=== PATIENT | male | born 1960 | race African-American/Black ===

== ENCOUNTER 2019-11-16 15:08 | Inpatient (IN) ==
[2019-11-16 15:48] LABS: URINE SOURCE CLEAN CATCH
[2019-11-16 15:52] LABS: BASO# 0.03 X1000 (0.0-0.2); BASO% 0.3 % (0.0-0.8); EOS# 0.23 X1000 (0.0-0.7); EOS% 2.6 % (0.0-10.0); HEMATOCRIT 45.8 % (42.0-52.0); HEMOGLOBIN 15.2 g/dL (14.0-18.0); IMM GRAN# 0.02 X1000 (0.0-0.04); IMM GRAN% 0.2 % (0.0-0.5); LYMPH# 2.82 X1000 (1.2-3.4); LYMPH% 32.5 % (20.5-51.1); MCHC 33.2 g/dL (33-37); MCV 93.5 FL (81-99); MONO# 1.42 X1000 (0.11-0.59); MONO% 16.4 % (1.7-9.3); MPV 9.4 FL (7.4-10.4); NEUT# 4.16 X1000 (1.4-6.5); PLT 219 X1000 (130-400); RDW 15.5 % (11.5-14.5); WBC 8.68 X1000 (4.8-10.8)
[2019-11-16 16:08] LABS: BILIRUBIN URINE NEGATIVE (NEGATIVE); BLOOD URINE NEGATIVE (NEGATIVE); COLOR YELLOW; GLUCOSE URINE NEGATIVE (NEGATIVE); KETONE URINE NEGATIVE (NEGATIVE); LEUKOCYTES URINE NEGATIVE (NEGATIVE); NITRITE URINE NEGATIVE (NEGATIVE); PH URINE 6.5; PROTEIN URINE NEGATIVE (NEGATIVE); SP GRAVITY URINE 1.011; TURBIDITY URINE CLEAR (CLEAR); UROBILINOGEN URINE NORMAL (NORMAL)
[2019-11-16 16:09] LABS: UR EPITHELIAL CELLS <10 /HPF (<10); URINE BACTERIA NEGATIVE /HPF; URINE RBC <10 /HPF (<10); URINE WBC <10 /HPF (<10)
[2019-11-16 16:10] LABS: UR AMPHETAMINES QUAL NONE DETECTED (NONE DETECT); UR BARBITUATES QUAL NONE DETECTED (NONE DETECT); UR BENZODIAZEPIN QUAL NONE DETECTED (NONE DETECT); UR CANNABINOIDS QUAL NONE DETECTED (NONE DETECT); UR COCAINE QUAL PRESUMPTIVE POSITIVE (NONE DETECT); UR METHADONE QUAL NONE DETECTED (NONE DETECT); UR METHAMPHETAMINE QUAL NONE DETECTED (NONE DETECT); UR OPIATES QUAL NONE DETECTED (NONE DETECT); UR OXYCODONE QUAL NONE DETECTED (NONE DETECT); UR PCP QUAL NONE DETECTED (NONE DETECT); UR PROPOXYPHENE QUAL NONE DETECTED (NONE DETECT); UR TCA QUAL NONE DETECTED (NONE DETECT)
--- NOTE | 2019-11-16 16:20 | PROVIDER DOCUMENTATION ---
HPI-Abdominal Pain/GI Problem - General Chief Complaint: Abdominal Pain Stated Complaint: ABD PAIN/NAUSEA Time Seen by Provider: 11/16/19 15:58 Source: patient Allergies/Adverse Reactions: Patient Allergies Allergy/AdvReac Type Severity Reaction Status Date / Time No Known Allergies Allergy Verified 11/16/19 15:41 Home Medications: Home Medication List Medication Instructions Recorded Confirmed Last Taken Type Quetiapine [Seroquel] 50 mg PO HS 11/16/19 11/16/19 Unknown History - History of Present Illness-ABD Nature of Presenting Problems: Patient is a 58yo M who presents with complaints of generalized abdominal pain, worse in upper quadrants, and nausea/dry heaving x2 days. Reports some relief in pain improvement with OTC Motrin. States last BM was this morning and was smaller than usual. Reports past hx of Pancreatitis. Admits to weekly alcohol usage, last 2 days ago, which was 1/2 pint of liquor. Denies fever, blood in stool/dark stools, symptoms, CP, or SOB. Non-toxic in appearance. Abdominal Pain Onset Location: reports: generalized abdomen (worse in bilateral upper quadrants) Pain Radiation: reports: no radiation Quality of Pain: reports: aching, cramping Severity in ED: reports: moderate Onset/Duration: reports: 2 days ago Timing: reports: still present Activities at Onset: reports: none Exposure to sick contacts?: No Modifying Factors: improves with: analgesics Associated Symptoms: reports: nausea, vomiting (dry heaving). denies: chest pain, diarrhea, fever/chills, genitourinary problems, headaches, shortness of breath Last BM: this morning Dark Stools Present?: reports: none noticed Rectal Bleeding: reports: none # of Diarrhea Episodes: 0 Rectal Pain: reports: none Emesis Description: reports: none (dry heaving) Bruising or Bleeding Gums?: No Similar Symptoms Previously?: Yes Recently seen or treated by another doctor?: Yes (saw PCP 10/25/19) Review of Systems - Adult - REVIEW OF SYSTEMS - ADULT Constitutional: reports: no symptoms reported. denies: chills, fever Eyes: reports: no symptoms reported Ears, Nose, Mouth & Throat: reports: no symptoms reported Cardiovascular: reports: no symptoms reported. denies: chest pain, palpitations Respiratory: reports: no symptoms reported. denies: cough, shortness of breath Gastrointestinal: reports: see HPI, abdominal pain, nausea, vomiting. denies: hematemesis, diarrhea, rectal bleeding Genitourinary: reports: no symptoms reported. denies: dysuria Musculoskeletal: reports: no symptoms reported Integumentary: reports: no symptoms reported Neurological: reports: no symptoms reported Psychiatric: reports: no symptoms reported Endocrine: reports: no symptoms reported Past History - Adult - PAST MEDICAL HISTORY-ADULT Review of Records: reports: Nursing Assessment Review, Medications Reviewed Major Childhood Illnesses: reports: denies history Cardiovascular: reports: denies history Respiratory: reports: denies history Gastrointestinal: reports: GI bleed, pancreatitis, polyps Obstetrical/Gynecological: reports: denies history Genitourinary: reports: denies history Musculoskeletal: reports: denies history Neurological: reports: denies history Psychiatric: reports: denies history Endocrine/Immune: reports: denies history Other Conditions: reports: denies history - PRIOR SURGERIES/PROCEDURES Surgical/Procedure History: reports: reviewed, not pertinent - IMMUNIZATION STATUS Childhood Immunizations: See Nurse Assessment Flu Vaccine: See Nurse Assessment - FAMILY HISTORY Family History: reviewed, not pertinent - SOCIAL HISTORY Smoking: cigarettes Provider spent 3-5 mins advising pt. on dangers of tobacco.: Discussed manners to quit use, and f/u contacts for add'l counseling. Substance Use: alcohol Alcohol Use Frequency: 3-4 times a week Number of drinks per typical drinking period:: 3-4 drinks Living Situation: family Physical Exam-General - PHYSICAL EXAM-ADULT Initial Vital Signs Reviewed: Yes - CONSTITUTIONAL General Appearance: alert, mild distress. negative: lethargic, slow to respond, obtunded - EYES Eyes: PERRL/EOMI, pink conjunctivae. negative: EOM palsy, scleral icterus - HEAD, EARS, NOSE, MOUTH & THROAT HENMT: normocephalic/atraumatic, moist mucous membranes. negative: angioedema - NECK Neck: full range of motion, supple, normal inspection - RESPIRATORY Respiratory: chest non-tender, lungs clear, normal breath sounds, no pleuratic chest pain, no respiratory distress, no accessory muscle use. negative: crackles, rales, rhonchi, stridor, wheezing, retractions, splinting - CARDIOVASCULAR Cardiovascular: regular rate, rhythm - GASTROINTESTINAL (ABDOMEN) Abdominal Exam: soft, abnormal bowel sounds (hyperactive), tenderness (diffusely TTP). negative: guarding, rigid, rebound - MUSCULOSKELETAL Back Exam: normal inspection Extremity: normal range of motion, non-tender, normal gait, normal inspection - SKIN Integumentary: normal color, warm/dry. negative: cyanosis, jaundice, pallor - NEUROLOGIC Neurologic: grossly normal. negative: abnormal gait, aphasia, EOM palsy - PSYCHIATRIC Psych/Mental Status: normal mood/affect, normal thought content, normal thought process, oriented x 3 Progress - PLAN OF CARE/RESULTS Progress/Plan/Lab Results: Vital Signs - 8 hr 11/16/19 15:13 Temperature 97.8 F Pulse Rate 94 H Respiratory Rate 18 Blood Pressure 167/96 O2 Sat by Pulse Oximetry 97 Laboratory Results - last 24 hr 11/16/19 11/16/19 11/16/19 15:35 15:35 15:35 WBC 8.68 RBC 4.90 Hgb 15.2 Hct 45.8 MCV 93.5 MCH 31.0 MCHC 33.2 RDW Std Deviation 15.5 H Plt Count 219 MPV 9.4 Immature Gran % (Auto) 0.2 Neut % (Auto) 48.0 Lymph % (Auto) 32.5 Bremer % (Auto) 16.4 H Eos % (Auto) 2.6 Baso % (Auto) 0.3 Immature Gran # (Auto) 0.02 Neut # (Auto) 4.16 Lymph # (Auto) 2.82 Bre[place] # (Auto) 1.42 H Eos # (Auto) 0.23 Baso # (Auto) 0.03 Urine Source CLEAN CATCH Urine Color YELLOW Urine Turbidity CLEAR Urine pH 6.5 Ur Specific [place] 1.011 Urine Protein NEGATIVE Ur Glucose (Stick) NEGATIVE Ur Ketones (Stick) NEGATIVE Urine Blood NEGATIVE Urine Nitrite NEGATIVE Urine Bilirubin NEGATIVE Urobilinogen Dipstick NORMAL Urine Leukocytes NEGATIVE Urine WBC (Auto) <10 Urine RBC (Auto) <10 U Epithel Cells (Auto) <10 Urine Bacteria (Auto) NEGATIVE Urine Opiates Screen NONE DETECTED Ur Oxycodone Screen NONE DETECTED Urine Methadone Screen NONE DETECTED U Propoxyphene Qual NONE DETECTED Ur Barbituates Screen NONE DETECTED Ur Tricyclics Screen NONE DETECTED Ur Phencyclidine Scrn NONE DETECTED Ur Amphetamines Screen NONE DETECTED U Methamphetamines Scrn NONE DETECTED U Benzodiazepines Scrn NONE DETECTED Urine Cocaine Screen PRESUMPTIVE POSITIVE A U Cannabinoids Screen NONE DETECTED Orders Category Date Time Status Saline Loc NOW Care 11/16/19 15:27 Active AMYLASE [CHEM] Stat Lab 11/16/19 15:35 Received CBC WITH DIFF [HEME] Stat Lab 11/16/19 15:35 Completed COMPREHENSIVE METABOLIC PANEL [CHEM] Stat Lab 11/16/19 15:35 Received LIPASE [CHEM] Stat Lab 11/16/19 15:35 Received URINALYSIS W/POSS RFLX CULT [URINALYSIS] Stat Lab 11/16/19 15:35 Completed URINE DRUG SCREEN PL Stat Lab 11/16/19 15:35 Completed Lab results, imaging results, plan of care, and need for admission discussed with patient who agrees with and verbalizes understanding. Result Diagrams: 11/16/19 15:35 11/16/19 15:35 - REASSESSMENT Reassessment #1 Time Reassessed: 17:00 Status: improving Reassessment #2 Time Reassessed: 18:15 Status: worsening Reassessment Comment: Pt reports pain has returned - EKG 1 Time of EKG reading by physician:: 17:11 EKG Read and Signed by:: Paul Carvajal EKG Interpretation (*Must complete 3 of following elements*): Normal (Borderline) Rate: 71 Rhythm: NSR [place]: normal QRS: LVH (minimal voltage criteria, may be normal variant) [place] Interval: normal ST Wave: normal - CT/MRI 1 CT Study: Abdomen, Pelvis Impression: See EMR Report ([facility] - [address] [facility] [address] [place], [place] [id number] [place] [address] [address] [place] [address] Department of Imaging Patient: [facility] Date: 11/16/19#: [id number] : 1960DM Status: REG ERAt#: [id number] 1983 Age/Sex: 58/MRoom/Bed: Loc: P.ED Ordering Physician: Pat Cancino Family Physician: Javier Galindo MD Reason for Procedure: Abdominal pain; nausea; hx pancreatitis Signed EXAM: CT ABD/PELVIS W/IV CONT ONLY INDICATION: Abdominal pain; nausea; hx pancreatitis TECHNIQUE: This exam was performed using automated exposure control, adjustment of mA or kV according to patient size, and/or use of iterative reconstruction technique. COMPARISON: 12/16/2018 FINDINGS: There is mild subsegmental atelectasis at the lung bases. There are multiple calcified granulomata at the lung bases. There is extensive inflammatory stranding surrounding the pancreas consistent with acute pancreatitis. There is a small amount of nonloculated free fluid that is extending along the tail of the pancreas and into the paracolic gutter on the left. There is no evidence of pancreatic necrosis. There is stable common bile duct dilatation and mild pancreatic duct dilatation. The gallbladder is partially contracted. No pericholecystic inflammatory changes appreciated. The portal vein and splenic vein are patent. There is likely mild hepatic steatosis. The liver is unremarkable, otherwise. The spleen, adrenal glands, and kidneys are essentially unremarkable. The urinary bladder is partially distended. Urinary bladder wall appears mildly thickened diffusely but this is probably due to underdistention. Correlate clinically to exclude a component of cystitis. There is uncomplicated diverticulosis coli. No focal bowel wall thickening or bowel obstruction is identified. The remainder of the GI tract is essentially unremarkable. There is no evidence of acute osseous abnormality. IMPRESSION: 1.Acute pancreatitis as described. 2.Mild diffuse urinary bladder wall thickening that is probably due to underdistention. Correlate clinically to exclude a component of cystitis. 3.Other incidental/nonacute findings detailed above. Electronically signed by Stephen Bonner 11/16/2019 6:09 PM 11/16/19 180 Interpreting Physician: Stephen Bonner MD Dictated Date/Time: 11/16/19 180 cc: Pat Villafuerte; Javier Galindo MD) - CONSULTS/PCP/HOSPITALIST Notification #1 *Consult/PCP/Hospitalist*: MD Josie Time Discussed: 18:30 Reason/Comments: Acute pancreatitis Consult Disposition: Admit Departure - Departure Date of Disposition Decision: 11/16/19 Time of Disposition Decision: 18:30 DIAGNOSIS: Cocaine use Acute pancreatitis Qualifiers: Pancreatitis type: alcohol induced Acute pancreatitis complication: no infection or necrosis Qualified Code(s): K85.20 - Alcohol induced acute pancreatitis without necrosis or infection Abdominal pain Qualifiers: Abdominal location: upper abdomen, unspecified Qualified Code(s): R10.10 - Upper abdominal pain, unspecified Nausea and vomiting Qualifiers: Vomiting type: unspecified Vomiting Intractability: unspecified Qualified Code(s): R11.2 - Nausea with vomiting, unspecified Disposition: ADMITTED INPATIENT 09 Certified Medical Emergency: Emergent Condition: Stable Referrals and Follow-Ups: Javier Galindo MD [Primary Care Provider] - - Critical Care Note This patient required my direct & personal management of CC.: No Attestation - Physician/ BARBER Attestation Patient care was provided by Advanced Practice Provider:: Yes Advanced Practice Provider:: Pat Villafuerte Advanced Practice Provider documentation review:: The Mid-level provider documentation, treatment plan and medical decision making was reviewed by the physician who agrees with all treatment and medical decision making by the P. The physician spent face to face time with patient:: No Advanced Practice Provider documentation review:: Supervising physician onsite and consulted in the evaluation and care of this patient. The physician did not have a face to face encounter with the patient.
[2019-11-16 16:21] LABS: ESTIMATED GFR > 60
[2019-11-16 16:27] LABS: AGAP 14; ALKALINE PHOSPHATASE 98 U/L (32-122); BUN 4 mg/dL (8-22); CALCIUM 8.9 mg/dL (8.8-10.2); CHLORIDE 100 mmol/L (98-107); COSMO 272; CREATININE 0.6 mg/dL (0.7-1.2); GLUCOSE 91 mg/dL (70-104); GOT 56 U/L (10-34); GPT 26 U/L (10-44); POTASSIUM 3.4 mmol/L (3.5-5.1); SODIUM 138 mmol/L (136-145); TCO2 25 mmol/L (25-35)
[2019-11-16] MEDS ORDERED: ZOFRAN IV ONE (16:33)
[2019-11-16] MEDS ORDERED: TORADOL IV ONE (16:33)
[2019-11-16 16:34] LABS: LIPASE 962 U/L (13-60)
[2019-11-16] MEDS ORDERED: NS 1,000 ML IV ONE (16:48)
--- NOTE | 2019-11-16 17:35 | EKG Report ---
Test Performed on : 11/16/2019 5:09:28 PM Test Reason : Epigastric pain Blood Pressure : / mmHG Vent. Rate : 071 BPM Atrial Rate : 071 BPM P-R Int : 136 ms QRS Dur : 086 ms QT Int : 430 ms P-R-T Axes : 049 017 035 degrees QTc Int : 467 ms Normal sinus rhythm. Minimal voltage criteria for LVH, may be normal variant Borderline ECG When compared with ECG of 16-DEC-2018 06:51, QT has shortened Unconfirmed Result
[2019-11-16 17:46] LABS: CK INDEX 1.3 (0.0-2.5); CK-MB 5.1 ng/mL (0.0-5.0)
--- NOTE | 2019-11-16 18:11 | Diag Imaging Result Doc PS360 ---
EXAM: CT ABD/PELVIS W/IV CONT ONLY INDICATION: Abdominal pain; nausea; hx pancreatitis TECHNIQUE: This exam was performed using automated exposure control, adjustment of mA or kV according to patient size, and/or use of iterative reconstruction technique. COMPARISON: 12/16/2018 FINDINGS: There is mild subsegmental atelectasis at the lung bases. There are multiple calcified granulomata at the lung bases. There is extensive inflammatory stranding surrounding the pancreas consistent with acute pancreatitis. There is a small amount of nonloculated free fluid that is extending along the tail of the pancreas and into the paracolic gutter on the left. There is no evidence of pancreatic necrosis. There is stable common bile duct dilatation and mild pancreatic duct dilatation. The gallbladder is partially contracted. No pericholecystic inflammatory changes appreciated. The portal vein and splenic vein are patent. There is likely mild hepatic steatosis. The liver is unremarkable, otherwise. The spleen, adrenal glands, and kidneys are essentially unremarkable. The urinary bladder is partially distended. Urinary bladder wall appears mildly thickened diffusely but this is probably due to underdistention. Correlate clinically to exclude a component of cystitis. There is uncomplicated diverticulosis coli. No focal bowel wall thickening or bowel obstruction is identified. The remainder of the GI tract is essentially unremarkable. There is no evidence of acute osseous abnormality. IMPRESSION: 1.Acute pancreatitis as described. 2.Mild diffuse urinary bladder wall thickening that is probably due to underdistention. Correlate clinically to exclude a component of cystitis. 3.Other incidental/nonacute findings detailed above. Electronically signed by Stephen Bonner 11/16/2019 6:09 PM
[2019-11-16] MEDS ORDERED: MORPHINE IV ONE (18:23)
[2019-11-16] MEDS ORDERED: SODIUM CHLORIDE 0.9% INJ PRN (21:18)
[2019-11-16] MEDS ORDERED: ATIVAN IV PRN (21:18)
[2019-11-16] MEDS ORDERED: PHENERGAN IV PRN (21:18)
[2019-11-16] MEDS: DEMEROL IM PRN (22:14)
[2019-11-16] MEDS: NS 1,000 ML IV SCH (22:43)
[2019-11-17] MEDS: NS 1,000 ML IV SCH ×3 (05:15→18:20)
[2019-11-17] MEDS: DEMEROL IM PRN ×2 (08:04→17:00)
[2019-11-17 14:46] LABS: AMYLASE 357 U/L (20-200); LIPASE 599 U/L (13-60)
[2019-11-18] MEDS: NS 1,000 ML IV SCH ×3 (01:00→18:28)
[2019-11-18] MEDS: M.V.I.-12 10 ML, FOLIC ACID 1 MG, MAGNESIUM SULFATE 1 GM, THIAMINE 100 MG in NS 1,000 ML IV SCH (09:08)
[2019-11-18 11:34] LABS: AMYLASE 242 U/L (20-200)
[2019-11-18 11:41] LABS: LIPASE 449 U/L (13-60)
--- NOTE | 2019-11-18 12:34 | HISTORY AND PHYSICAL ---
HISTORY OF PRESENT ILLNESS: This is a 58-year-old black male with a history of alcohol usage and previous pancreatitis and GI bleeds. He presented through the ER complaining of generalized abdominal pain, worse in the upper quadrants, nausea, dry heaves occurring for approximately 2 days. He gets some relief with Motrin. He states his last bowel movement was this morning, smaller than usual. No bleeding. No melena. He admits to weekly alcohol usage. For the last 2 days, he has drank 1/2 pint of liquor. He denies any symptoms. He walked into the ER. ALLERGIES: He has no allergies. MEDICATIONS: He is on Seroquel at bedtime to help him sleep. SOCIAL HISTORY: He is retired from [employer]. REVIEW OF SYSTEMS: Constitutional: He denies any fever, chills, significant weight gain or weight loss. Eyes: No change in visual acuity. ENT: No sinusitis, otitis or laryngitis. Cardiovascular: He denies chest pain, palpitations, edema, PND or orthopnea. Respiratory: He denies cough, wheeze, shortness of breath or flulike symptoms. Gastrointestinal: See HISTORY OF PRESENT ILLNESS. Genitourinary: No dysuria, polyuria or hematuria. Good stream. No pyuria. He has occasional nocturia. Musculoskeletal: No muscle tenderness, joint swellings, lesions or back pain. Skin: No lesions. No rashes. Neurological: No focal neurological issues. No history of migraines, seizures or epilepsy. Psychiatric: He has a history of alcohol abuse. No significant psychosis or depression. Endocrine: No asthma or hayfever. PAST MEDICAL HISTORY: He has had GI bleed (he cannot recall exactly from what, perhaps an ulcer), pancreatitis, and he has had polyps on endoscopy. PHYSICAL EXAMINATION: VITAL SIGNS: At time of admission temperature 97.8, pulse 94, respiratory rate 18, blood pressure 167/96, O2 sat 97. HEENT: Head was normocephalic. Eyes: PERRL, EOM intact. SC clear. Fundi benign. Nares patent. Oropharynx negative. NECK: Supple. Bounding carotids. Without thyromegaly. No JVD bilaterally. CHEST: Clear breath sounds. ABDOMEN: Soft. No peritoneal signs. No organomegaly appreciated. Bowel sounds are present. NEUROLOGICAL: Nonfocal and normal. PSYCHIATRIC: Negative. ADMITTING DIAGNOSIS: Abdominal pain. His CBC was normal. Urinalysis was negative. Drug screen was positive for cocaine. His comp was normal other than slight low potassium of 3.4. CBC was normal. EKG sinus rhythm. LVH. CT of the abdomen shows acute pancreatitis, diffuse urinary bladder wall thickening probably due to underdistention. No other acute findings. He is admitted, put n.p.o., IV fluid replacement, banana bags and pain control. cc: Javier Galindo MD
[2019-11-18] MEDS ORDERED: TYLENOL PO PRN (12:55)
[2019-11-19] MEDS: NS 1,000 ML IV SCH ×3 (00:22→14:54)
[2019-11-19] MEDS: DEMEROL IM PRN (04:47)
[2019-11-19] MEDS: M.V.I.-12 10 ML, FOLIC ACID 1 MG, MAGNESIUM SULFATE 1 GM, THIAMINE 100 MG in NS 1,000 ML IV SCH (10:02)
[2019-11-19 12:32] LABS: AMYLASE 210 U/L (20-200); LIPASE 400 U/L (13-60)
[2019-11-20] MEDS: NS 1,000 ML IV SCH ×2 (00:52→04:32)
[2019-11-20 06:08] VITALS: BP 161/84
[2019-11-20 06:31] LABS: AGAP 13; ALBUMIN 3.2 g/dL (3.5-5.0); ALKALINE PHOSPHATASE 87 U/L (32-122); AMYLASE 208 U/L (20-200); BUN 3 mg/dL (8-22); CALCIUM 8.5 mg/dL (8.8-10.2); CHLORIDE 102 mmol/L (98-107); COSMO 269; CREATININE 0.5 mg/dL (0.7-1.2); ESTIMATED GFR > 60; GLUCOSE 104 mg/dL (70-104); GOT 29 U/L (10-34); GPT 17 U/L (10-44); LIPASE 284 U/L (13-60); POTASSIUM 3.5 mmol/L (3.5-5.1); SODIUM 136 mmol/L (136-145); TCO2 21 mmol/L (25-35); TOTAL PROTEIN 7.3 g/dL (6.3-8.3)
--- NOTE | 2019-11-20 09:30 | PROGRESS NOTE ---
DATE: 11/17/2019 This is a 58-year-old black male with acute pancreatitis secondary to alcohol abuse. He is not in any severe distress with his abdominal pain. He has a temperature of 98.8, pulse 62, respiratory rate 16, blood pressure 143/78, O2 saturation was 100%. Imaging report: He had a CT of his abdomen and pelvis on 11/16/2019 which revealed an acute pancreatitis, mild diffuse urinary bladder wall thickening due to underdistention. He is n.p.o. except for sips of clear liquid, tolerating them fine. We will continue to have pancreatic rest and follow his enzymes. His enzymes today are amylase of 357, lipase 599. cc: Javier Galindo MD
--- NOTE | 2019-11-20 09:31 | PROGRESS NOTE ---
DATE: 11/18/2019 The patient has alcoholic pancreatitis. On clear liquids. No nausea. No vomiting. Pain is subsiding. It is not continuous. His amylase has fallen to 242. Lipase is 449. We will continue as we have been doing. cc: Javier Galindo MD
--- NOTE | 2019-11-20 09:32 | PROGRESS NOTE ---
DATE: 11/19/2019 Planning on advancing his diet to full liquids. His numbers continue to improve but slowed down some. Amylase 210, lipase 400. On physical exam, no signs of alcohol withdrawal symptoms. Abdomen soft. Chest is clear. Heart with regular rhythm and rate. cc: Javier Galindo MD
--- NOTE | 2019-11-20 10:39 | PROGRESS NOTE ---
DATE: 11/20/2019 This is a 58-year-old black male who was hospitalized with an alcohol induced pancreatitis. He has had similar bouts in the past. History of the same. He has been taking light meals, primarily liquids, and tolerating them fine. No issues with his abdomen. Abdomen is soft. BUN is 3, creatinine 0.5, GFR is 60, sodium 136, potassium 3.5, chloride 102, carbon dioxide 21, calcium 8.1, albumin 3.2. LFTs are normal. Amylase is 208, lipase is 284. We are planning on discharging him today and following up in the office. He will be taking Seroquel 50 at bedtime. cc: Javier Galindo MD
--- NOTE | 2019-11-25 08:16 | DISCHARGE SUMMARY ---
ADMISSION DATE: 11/16/2019 DISCHARGE DATE: 11/20/2019 The patient presented to the ER and was subsequently hospitalized on 11/16/2019. HISTORY OF PRESENT ILLNESS: The patient presented to the emergency room complaining of generalized belly pain. He has had a previous history of pancreatitis related to alcohol abuse and GI bleeds. He was complaining of generalized pain that was worse in the upper quadrants associated with nausea, dry heaves on occasion off and on for 2 days. He says he gets some relief from Motrin. His last bowel movement was the morning of presentation, smaller than usual, no bleeding, no melena. He admits to weekly alcohol usage. For the last 2 days, he has drunk one- half pint of liquor. He denies any symptoms. He walked into the ER. No allergies. He only currently is taking Seroquel 50 at bedtime to help him sleep. He is retired from [employer] here in [place]. On presentation, his exam, he had a blood pressure 167/96, pulse was 94, respiratory rate was 18, as previously stated O2 saturation was 97. Physical exam was fairly unremarkable. Bowel sounds were present. Belly was a little tender but no rebound. DATABASE: He had the following database, his laboratory when he came in CBC was normal, white count 8680, hematocrit 45.8, platelet count 219,000. His admitted sodium was 138, potassium was 3.4, chloride 100, CO2 25, BUN 4, creatinine 0.6, GFR greater than 60, glucose 91, calcium 8.9, bilirubin 0.5, AST 56, ALT 26, alkaline phosphatase 98. CK 379, index 1.3, MB band 5.10. Troponin high-sensitivity was only 9. Total protein 8, albumin 4, globulin 4, amylase 419, lipase 962. We put him on n.p.o. to begin with, kept him that way. Symptoms improved. On 11/20, his amylase was down to 208, lipase was 284. His toxicology was positive for cocaine. Urine was negative. Hematology: CBC was normal. His vital signs throughout the hospital stay were unremarkable. We discharged him home and he was instructed to come to the office. He was discharged on Seroquel 50 mg p.o. at bedtime. cc: Javier Galindo MD
== END 2019-11-20 11:17 | disposition home or self-care (01) | DRG 440 ==
LOC: P.ED 15:08 → P.MEDSURG 20:19
PROVIDERS: ADMIT Internal Medicine; ATTEND Internal Medicine